=== PATIENT | male | born 1955 | race Caucasian/White ===

== ENCOUNTER 2022-12-27 19:29 | Emergency (ER) | payer MEDICARE, MEDICAID ==
[~2022-12-27] VITALS: Ht 172.7 cm; Wt 90.0 kg
[~2022-12-27 19:29] MED LIST: ALBU8.5H17 INH; ASPI81TA47 PO; CARV6.252 PO; CEFU500T66 PO; DIO80T PO; FENO160T13 PO; LINA5TAB4 PO; METF1000 PO; PANT40TA54 PO; PRAV20TA4 PO; SPIR25TA5 PO
[2022-12-27 19:45] VITALS: BP 125/73
[2022-12-27] MEDS ORDERED: triamcinolone acet 0.1% cream 15gm TP STA (20:59)
[2022-12-27] MEDS ORDERED: diphenhydrAMINE 25mg capsule PO ONE (21:00)
[2022-12-27] MEDS ORDERED: EPIN0.3P3 IM (21:04)
== END 2022-12-27 21:27 | disposition home or self-care (01) ==
LOC: ER 19:30
DX: S60.862A Insect bite (nonvenomous) of left wrist, initial encounter (principal); E78.00 Pure hypercholesterolemia, unspecified; I10 Essential (primary) hypertension; Z88.5 Allergy status to narcotic agent; Z91.013 Allergy to seafood; W57.XXXA Bitten or stung by nonvenomous insect and other nonvenomous arthropods, initial encounter; Y93.89 Activity, other specified; Y92.89 Other specified places as the place of occurrence of the external cause; Y99.8 Other external cause status
CPT/HCPCS: 99283

== ENCOUNTER 2023-09-03 13:52 | Emergency (ER) | payer MEDICARE, MEDICAID ==
[~2023-09-03] VITALS: Ht 172.7 cm; Wt 91.8 kg
[~2023-09-03 13:52] MED LIST changes: +EPIN0.3P3 IM
[2023-09-03 15:15] VITALS: BP 126/71; PULSE 72; RESP 18; O2SAT 96
[2023-09-03 15:47] VITALS: TEMP 98
[2023-09-03] MEDS: acetaminophen 325mg tablet PO ONE (16:01)
[2023-09-03] MEDS: cyclobenzaprine 10mg tablet PO ONE (16:01)
[2023-09-03] MEDS: ondansetron 4mg rapidly disintigrating tab PO ONE (16:01)
== END 2023-09-03 16:41 | disposition home or self-care (01) ==
LOC: ER 13:52
DX: S06.0X0A Concussion without loss of consciousness, initial encounter (principal); X58.XXXA Exposure to other specified factors, initial encounter; Y93.89 Activity, other specified; Y92.89 Other specified places as the place of occurrence of the external cause; Y99.8 Other external cause status; E78.00 Pure hypercholesterolemia, unspecified; I10 Essential (primary) hypertension; E11.9 Type 2 diabetes mellitus without complications; G89.29 Other chronic pain; M54.9 Dorsalgia, unspecified; Z88.5 Allergy status to narcotic agent; Z79.899 Other long term (current) drug therapy; Z88.6 Allergy status to analgesic agent; Z91.013 Allergy to seafood
CPT/HCPCS: 70450; 72125; 99284

== ENCOUNTER 2023-09-05 12:04 | Emergency (ER) | payer MEDICAID, MEDICARE | END 2023-09-05 13:03 | disposition left against medical advice (07) | LOC: ER 12:04 | DX: R51.9 Headache, unspecified (principal); Z53.21 Procedure and treatment not carried out due to patient leaving prior to being seen by health care provider ==